=== PATIENT | male | born 1965 | race Caucasian/White ===

== ENCOUNTER 2018-03-18 14:51 | Day surgery (SDC) | payer OTHER ==
[~2018-03-18 14:51] MED LIST: ALIS1TAB4 PO; CHOL500045 PO; FENO145T32 PO; LOSA100T14 PO; METO-95 PO; OMEP20CA9 PO; PRAS25TA PO
[2018-03-18] MEDS ORDERED: LIDOCAINE/PF 1%, 30ML ONE (15:08)
[2018-03-18] MEDS ORDERED: LIDOCAINE-MPF 1%, 5ML ONE (15:09)
[2018-03-18 17:03] LABS: GLUCOSE, CSF 75 mg/dL (40-80); TOTAL PROTEIN,CSF 121 mg/dL (15-45)
[2018-03-18] MEDS ORDERED: ACETAMINOPHEN 325 MG TABLET PO ONE (17:15)
[2018-03-18] MEDS ORDERED: PLEASE ENTER HEIGHT AND WEIGHT MC SCH (17:30)
[2018-04-13] MEDS ORDERED: UBID100C10 PO (09:13)
[2018-04-13] MEDS ORDERED: TEST100V2 HOMEINJ (09:13)
[2018-04-13] MEDS ORDERED: LOSA100T14 PO (09:13)
[2018-04-13] MEDS ORDERED: METF750T2 PO (09:13)
[2018-04-13] MEDS ORDERED: ANAS1TAB PO (09:13)
[2018-04-13] MEDS ORDERED: TRAM100T33 PO (09:13)
[2018-04-13] MEDS ORDERED: OMEG-130 PO (09:13)
[2018-04-13] MEDS ORDERED: COLE625T12 PO (09:13)
== END 2018-03-18 18:59 | disposition home or self-care (01) ==
LOC: RAD 14:51 → EDSTATUS 15:00 → 4NOR 16:26 → RAD 18:59
PROVIDERS: ATTEND Psychiatry & Neurology Neurology
DX: G61.81 Chronic inflammatory demyelinating polyneuritis (principal); I10 Essential (primary) hypertension
CPT/HCPCS: 62270; 82945; 84157; 89051; G0378; J3490